=== PATIENT | female | born 1995 | race African-American/Black ===

== ENCOUNTER 2021-06-12 10:00 | Emergency (ER) | payer OTHER ==
[2021-06-12 10:19] VITALS: BP 112/76; PULSE 69; TEMP 98.4; BMI 22.8
[2021-06-12] MEDS ORDERED: FAMOTIDINE 20 MG TABLET PO ONE (11:11)
[2021-06-12] MEDS ORDERED: DEXAMETHASONE LIQUID 0.5 MG/5 ML PO ONE (11:11)
[2021-06-12] MEDS ORDERED: diphenhydrAMINE HCL 25 MG CAPSULE (FP) PO ONE ×2 (11:12→11:42)
[2021-06-12] MEDS ORDERED: DEXAMETHASONE SOD PHOSPHATE 10 MG/1 ML VIAL ONE (11:41)
[2021-06-12] MEDS ORDERED: FAMOTIDINE 20 MG TABLET ONE (11:42)
== END 2021-06-12 12:06 | disposition home or self-care (01) ==
LOC: JERFT 10:00
DX: L50.9 Urticaria, unspecified (principal)
CPT/HCPCS: 99283-25

== ENCOUNTER 2021-08-16 20:15 | Emergency (ER) | payer OTHER ==
[2021-08-16 20:22] VITALS: BP 130/85; PULSE 85; TEMP 97; BMI 19.0
[2021-08-18 23:07] LABS: SARS-CoV-2 NAA Not Detected (Not Detected)
== END 2021-08-16 23:01 | disposition home or self-care (01) ==
LOC: JER 20:15
DX: B34.9 Viral infection, unspecified (principal)
CPT/HCPCS: 87804; 99283-25; C9803; U0003; U0005

== ENCOUNTER 2021-08-27 05:06 | Emergency (ER) | payer OTHER ==
[2021-08-27 05:16] VITALS: BP 115/75; PULSE 86; TEMP 98.2; BMI 22.0
== END 2021-08-27 09:09 | disposition home or self-care (01) ==
LOC: JER 05:06 → JERFT 05:06
DX: J02.9 Acute pharyngitis, unspecified (principal)
CPT/HCPCS: 87070; 99281-25

== ENCOUNTER 2021-12-02 12:55 | Emergency (ER) | payer OTHER ==
[2021-12-02 13:06] VITALS: BP 121/82; PULSE 76; TEMP 98; BMI 21.9
== END 2021-12-02 14:07 | disposition home or self-care (01) ==
LOC: JER 12:55
DX: L50.9 Urticaria, unspecified (principal)
CPT/HCPCS: 99283-25

== ENCOUNTER 2023-09-25 07:05 | Observation (INO) | payer OTHER ==
[2023-09-25 08:15] LABS: BASO % 0.1 % (0-2.0); EOS % 0.3 % (0-4.5); HEMOGLOBIN 12.3 GM/dL (10.7-15.3); LYMPH % 41.9 % (8-40); MCHC 33.3 g/dl (32.0-36.0); MEAN CELL VOLUME 87.3 fl (80-96); MONO % 10.7 % (3.8-10.2); PLATELET COUNT 203 10^3/uL (134-434); RBC 4.24 M/mm3 (3.60-5.2); RDW 13.2 % (11.6-15.6); WHITE BLOOD COUNT 3.3 K/mm3 (4.0-10.0)
[2023-09-25 08:18] LABS: EPI CELLS 12 /uL (0-25.1); HYALINE CASTS 0 /uL (0-3.1); PH,URINE 6.5 (5.0-8.0); URINE APPEARANCE CLEAR; URINE BACTERIA 128 /uL (0-1359); URINE BILIRUBIN NEGATIVE (NEGATIVE); URINE COLOR YELLOW; URINE GLUCOSE (UA) NEGATIVE (NEGATIVE); URINE KETONE NEGATIVE (NEGATIVE); URINE LEUK ESTERASE NEGATIVE (NEGATIVE); URINE NITRITE NEGATIVE (NEGATIVE); URINE PROTEIN NEGATIVE (NEGATIVE); URINE RBC 20 /uL (0-23.9); URINE WBC 7 /uL (0-25.8)
[2023-09-25 08:23] LABS: METHADONE, UR NEGATIVE (NEGATIVE); OPIATES, URI NEGATIVE (NEGATIVE); PHENCYCLIDINE,URINE NEGATIVE (NEGATIVE); URINE AMPHETAMINES NEGATIVE (NEGATIVE); URINE BARBITURATES NEGATIVE (NEGATIVE); URINE BENZODIAZEPINES NEGATIVE (NEGATIVE)
[2023-09-25 08:24] LABS: COCAINE, UR NEGATIVE (NEGATIVE)
[2023-09-25 08:34] LABS: POTASSIUM 4.2 mmol/L (3.5-5.1)
[2023-09-25 08:37] LABS: BLOOD UREA NITROGEN 9.2 mg/dL (7-18)
[2023-09-25 08:39] LABS: CREATININE 0.9 mg/dL (0.55-1.3)
[2023-09-25 08:41] LABS: BILIRUBIN,TOTAL 0.4 mg/dL (0.2-1)
[2023-09-25] MEDS: SODIUM CHLORIDE 0.9% 500 ML INFUS.BAG IV ONE (08:55)
[2023-09-25] MEDS ORDERED: METOCLOPRAMIDE HCL INJECTION 10 MG/2 ML VIAL ONE (12:37)
[2023-09-25] MEDS ORDERED: ACETAMINOPHEN INJECTION 100 ML IVPB ONE (12:38)
[2023-09-25] MEDS: METOCLOPRAMIDE HCL INJECTION 10 MG/2 ML VIAL IVPB ONE (12:45)
[2023-09-25] MEDS: ACETAMINOPHEN 1000 MG/100 ML BAG IVPB ONE (12:56)
[2023-09-25 16:45] VITALS: BMI 21.2
[2023-09-25 18:40] VITALS: RESP 18
[2023-09-25] MEDS: TRIMETHOBENZAMIDE HCL 200MG/2ML INJ IM ONE (20:15)
[2023-09-26] MEDS: SERTRALINE HCL 25 MG TABLET (FP) PO SCH (09:18)
[2023-09-26 09:36] LABS: BASO % 0.1 % (0-2.0); EOS % 0.1 % (0-4.5); HEMATOCRIT 35.1 % (32.4-45.2); HEMOGLOBIN 11.9 GM/dL (10.7-15.3); LYMPH % 40.1 % (8-40); MCH 29.5 pg (25.7-33.7); MEAN CELL VOLUME 86.8 fl (80-96); MEAN PLT VOLUME 9.6 fl (7.5-11.1); MONO % 9.5 % (3.8-10.2); NEUT % 50.2 % (42.8-82.8); PLATELET COUNT 199 10^3/uL (134-434); RBC 4.04 M/mm3 (3.60-5.2); RDW 13.1 % (11.6-15.6); WHITE BLOOD COUNT 3.4 K/mm3 (4.0-10.0)
[2023-09-26 09:54] LABS: POTASSIUM 4.5 mmol/L (3.5-5.1)
[2023-09-26 09:57] LABS: ALBUMIN 3.6 g/dl (3.4-5.0)
[2023-09-26 09:59] LABS: CALCIUM 9.3 mg/dL (8.5-10.1)
[2023-09-26 10:00] LABS: BLOOD UREA NITROGEN 8.8 mg/dL (7-18); CREATININE 0.9 mg/dL (0.55-1.3); MAGNESIUM 1.8 mg/dL (1.8-2.4); PHOSPHOROUS 3.3 mg/dL (2.5-4.9)
[2023-09-26 10:02] LABS: BILIRUBIN,TOTAL 0.7 mg/dL (0.2-1); TOT PROT 6.7 g/dl (6.4-8.2)
[2023-09-26 13:10] VITALS: BP 117/57; PULSE 69; TEMP 98.1
== END 2023-09-26 13:29 | disposition home or self-care (01) ==
LOC: JER 07:05 → JERBED 12:29 → J5S 15:32
PROVIDERS: ADMIT Internal Medicine
PROC: 3E033NZ Introduction of Analgesics, Hypnotics, Sedatives into Peripheral Vein, Percutaneous Approach (ICD-10-PCS; principal; 2023-09-25)
PROC: 3E033GC Introduction of Other Therapeutic Substance into Peripheral Vein, Percutaneous Approach (ICD-10-PCS; 2023-09-25)
PROC: 3E0337Z Introduction of Electrolytic and Water Balance Substance into Peripheral Vein, Percutaneous Approach (ICD-10-PCS; 2023-09-25)
PROC: 3E023GC Introduction of Other Therapeutic Substance into Muscle, Percutaneous Approach (ICD-10-PCS; 2023-09-25)
DX: R56.9 Unspecified convulsions (principal); R53.1 Weakness; F12.90 Cannabis use, unspecified, uncomplicated; G83.84 Todd's paralysis (postepileptic); L50.8 Other urticaria; F41.9 Anxiety disorder, unspecified; R42 Dizziness and giddiness; R51.9 Headache, unspecified; R20.0 Anesthesia of skin; R20.2 Paresthesia of skin; F41.8 Other specified anxiety disorders
CPT/HCPCS: 0241U-QW; 36415; 70450-TC; 70551-TC; 80053; 80307; 81003; 82550; 82962; 83605; 83735; 84100; 84146; 84439; 84443; 84703; 85025; 87086; 93005; 93010; 96372; 96374; 96375; 99285-25; G0378; J0131